=== PATIENT | female | born 1970 | race Caucasian/White ===

== ENCOUNTER 2017-01-06 09:50 | Inpatient (IN) | payer OTHER, MEDICARE ==
[~2017-01-06] VITALS: Ht 162.6 cm; Wt 68.2 kg
[~2017-01-06 09:50] MED LIST: ADAP45GE3 TP; ARIP5TAB5 PO; FLUR30CA13 PO; HALO1TAB PO; LAMO200T2 PO; LORA2TAB PO; NABU500T PO; NORE1TAB56 PO; OMEP20CA11 PO; OXYC1TAB24 PO; QUET200T58 PO; TIZA4CAP8 PO; TRAM-14 PO
[2017-01-06 09:52] VITALS: BP 146/100; PULSE 105; RESP 18; O2SAT 98
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
[2017-01-06 10:37] LABS: BASOPHILS % (AUTO) 0.4 % (0-3); EOSINOPHILS % (AUTO) 2.1 % (0-5); MONOCYTES % (AUTO) 6.5 % (4-12); Mean Corpuscular Hemoglobin 32.5 pg (27.0-35.0); Mean Corpuscular Volume 97.2 fL (81-100); NEUTROPHILS % (AUTO) 58.1 % (40-74); Platelet Count 300 bil/L (150-400)
[2017-01-06] MEDS ORDERED: Alum-Mag Hydrox-Simeth 30 mL Suspension PO PRN (21:20)
[2017-01-06 21:30] VITALS: BP 132/93; PULSE 93; RESP 16
[2017-01-06] MEDS ORDERED: lamoTRIgine 100 mg Tablet PO SCH (21:30)
[2017-01-06] MEDS ORDERED: oxyCODONE-Acetamin 5-325 mg Tablet PO PRN (21:35)
--- NOTE | 2017-01-07 06:03 | NUR ---
Nursing Admit. Pt arrival to unit from our ED at 2009 as a voluntary admit. Approval to be obtained today. Pt arrival via wheelchair with security and ED staff. Pt signed all paperwork and has contracted for safety. Pt reports that she has asked to be admitted for medication adjustment, r/t inability to drive for the last month or so r/t confusion. Pt reports this is r/t medications. Pt is prescribed multiple mood effecting medications. Pt currently living with spouse and is without marital problems. Pt reported history of Bipolar, ADHD, fibromyalgia, chronic spine pain , anxiety, and depression. Reports recently sleeping approximately 3-5 hours nightly. Rated anxiety 2/10, depression 0/10, and pain 0/10. Pt reports she is manic, her psychiatrist (Dr Bernard) is out of town. Recently started on Ambien and Clonidine to assist with sleep.
--- NOTE | 2017-01-07 07:02 | NUR ---
Observations 1900 - 0700 Pt arrived on unit at 2009 and was able to complete admission process. Pt signed all admission paperwork. Pt was oriented to the unit, shown to her room and given a pair up scrubs to wear. Pt was observed to be flat, anxious and depressed. Pt was pleasant, polite and cooperative when approached. Pt maintained behavior throughout the shift. Pt speech was soft and eye contact was ok. Pt was offered snack but she declined. Pt stated "I will not be eating the food here and that's going to be a problem" Pt first appeared asleep at 0000 and slept through the night. Pt was observed every 15 minutes through the night as ordered.
[2017-01-07] MEDS: lamoTRIgine 100 mg Tablet PO SCH ×2 (08:06→15:05)
[2017-01-07] MEDS ORDERED: ARIPiprazole 10 mg Tablet PO SCH (08:30)
[2017-01-07 13:32] VITALS: BP 118/84; PULSE 100; RESP 18
--- NOTE | 2017-01-07 15:13 | NUR ---
shift note 7a-7p Pt. has been pleasant and cooperative today, requesting increased nicotine lozenges and states that is her main issue today. States no depression, 5/10 anxiety, and no thoughts of harm to self or others. No hallucinations or delusions. speech and interactions are appropriate. States that she is terrified of driving because it overwhelms her and she gets anxious and feels like she can't focus on driving safely.
--- NOTE | 2017-01-07 18:43 | NUR ---
Obs Dayshift Pt began the day calm, participating in groups, and engaging w/ peers and staff. Pt became more and more frustrated during the day, wanting nicotine patches, calling staff names, demanding the TV be changed. Staff attempted to allow her into the GR to watch TV, she became more irritable, loud and upset. Later her came to visit and she was able to calm herself down and stated that she was sorry to staff for her outburst. Pt continues to only eat PBJ sandwiches and milk, stating that she will not eat the food here. Pt is labile, demanding, irritable, entitled, high needs, and many requests. Good ADL's, Good meals
--- NOTE | 2017-01-07 19:55 | NUR ---
senior quality manager/Counselor: S: "I used to come here years ago, when you guys were on the 3rd floor, like it was my hotel." O: Patient slept 5.5+ hours last night per staff. Patient denies S/I and H/I. She also denies auditory and visual hallucinations. Depression is 0/10 and anxiety is 5-6/10. Patient stated, "I don't want anybody to come see me but my ." When asked her mood, patient stated, "I'm good, happy." A: Patient is cooperative, unkept, disheveled, guarded, restricted affect, dysthymic, endorses telepathy, limited insight, limited judgment. P: Follow care plan, coordinate with out-patient providers.
[2017-01-07] MEDS ORDERED: cloNIDine 0.1 mg Tablet PO SCH (21:00)
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
[2017-01-07] MEDS: LORazepam 1 mg Tablet PO PRN (22:55)
--- NOTE | 2017-01-08 05:21 | NUR ---
nursing, nights, 11-7 s- i feel pressure from all sides. i need a breast reduction. i'm not suppose to be up. can i have some orange juice. when can i have the phone. i'm good. o- has appeared to sleep after 0045. up at 0145. asleep at 0245. up at 0515 and is now resting quietly in bed. assessed q 15 minutes. a- interrupted sleep, pressured with a flight of ideas, no apparent distress. p- monitor behavior/emotional state, quality, times and amount of sleep, use and effect of medication. aicha
[2017-01-08] MEDS: Magnesium Hydroxide 10 mL Oral Concentration PO PRN (08:05)
[2017-01-08] MEDS: LORazepam 1 mg Tablet PO PRN ×3 (09:40→22:02)
[2017-01-08 13:14] VITALS: BP 126/86; PULSE 95; RESP 16
--- NOTE | 2017-01-08 14:35 | PCM.PNPSY ---
Subjective Date of Service Jan 08, 2017 Subjective I spent 30 minutes both reviewing treatment plan with our clinical team, interviewing the patient and providing supportive/educational psychotherapy. I spent more than 50% of the time counseling the patient. I reviewed the treatment plan with the patient and discussed options available including the potential risks, benefits and side effects. Estefanía reports a gradual improvement in thought organization and mood stability. Staff reports that she has been active and participating well in one -to-one unit and group activities. She slept 8 hours and denies psychotic symptoms review. She denies medication side effects. She was able to identify her medications and what they were used to treat. Current Medications Current Medications Acetaminophen 650 mg Q4H PRN PO Last administered on 01/07/17 18:52; Admin Dose 650 MG; Start 01/06/17 at 21:20 Alprazolam 1-2MG QID PRN PO Last administered on 01/07/17 08:10; Admin Dose 2 MG; Start 01/06/17 at 21:35; Stop 01/07/17 at 12:49; Status DC Aripiprazole 10 mg BID PO Last administered on 01/07/17 08:06; Admin Dose 10 MG ; Start 01/07/17 at 08:30; Stop 01/07/17 at 12:49; Status DC Benztropine Mesylate 1 mg BID PO Last administered on 01/08/17 07:58; Admin Dose 1 MG; Start 01/07/17 at 20:30 Bupropion HCl 37.5 mg MORNING PO Last administered on 01/08/17 07:58; Admin Dose 37.5 MG; Start 01/08/17 at 08:30 Clonazepam 1 mg BID PO Last administered on 01/08/17 07:59; Admin Dose 1 MG; Start 01/07/17 at 20:30; Stop 01/08/17 at 14:26; Status DC Divalproex Sodium 500 mg HS PO Last administered on 01/07/17 20:12; Admin Dose 500 MG; Start 01/07/17 at 21:00; Stop 01/08/17 at 14:26; Status DC Haloperidol 5 mg NOON PO Last administered on 01/08/17 11:27; Admin Dose 5 MG; Start 01/08/17 at 12:00 Haloperidol 10 mg HS PO Last administered on 01/07/17 19:02; Admin Dose 10 MG; Start 01/07/17 at 21:00 Lamotrigine 100 mg BID@0830,16 PO Last administered on 01/07/17 15:05; Admin Dose 100 MG; Start 01/07/17 at 08:30; Stop 01/07/17 at 15:06; Status DC Lamotrigine 200 mg HS PO Last administered on 01/06/17 21:49; Admin Dose 200 MG ; Start 01/06/17 at 21:30; Stop 01/07/17 at 12:49; Status DC Lorazepam 1-2 MG Q4H PRN PO Last administered on 01/08/17 10:15; Admin Dose 1 MG; Start 01/07/17 at 22:50 Magnesium Hydroxide 10 ml Q12H PRN PO Last administered on 01/08/17 08:05; Admin Dose 10 ML; Start 01/06/17 at 21:20 Nabumetone 1,000 mg BID PO Last administered on 01/08/17 08:05; Admin Dose 1, 000 MG; Start 01/07/17 at 08:30 Nicotine Polacrilex 2 mg Q1H PRN BUCCAL Last administered on 01/08/17 13:04; Admin Dose 2 MG; Start 01/07/17 at 12:40 Nicotine Polacrilex 2 mg Q2H PRN BUCCAL Last administered on 01/07/17 11:30; Admin Dose 2 MG; Start 01/06/17 at 21:20; Stop 01/07/17 at 12:37; Status DC Quetiapine Fumarate 200-400MG HS PO Last administered on 01/06/17 21:49; Admin Dose 400 MG; Start 01/06/17 at 21:29; Stop 01/07/17 at 12:49; Status DC Tizanidine HCl 4 mg Q8H PRN PO Last administered on 01/07/17 21:40; Admin Dose 4 MG; Start 01/06/17 at 21:35 Tramadol HCl 50 mg TID PRN PO Last administered on 01/07/17 23:39; Admin Dose 50 MG; Start 01/06/17 at 21:35 Zolpidem Tartrate 10 mg HS PRN PO Last administered on 01/07/17 22:55; Admin Dose 10 MG; Start 01/07/17 at 22:50 Zolpidem Tartrate 20 mg HS PRN PO Last administered on 01/06/17t 21:49; Admin Dose 20 MG; Start 01/06/17 at 21:35; Stop 01/07/17 at 12:49; Status DC Mental Status Exam Vital Signs Vital Signs Date Time Temp Pulse Resp B/P Pulse Ox O2 Delivery O2 Flow Rate FiO2 01/08/17 13:14 36.6 95 16 126/86 Appearance: Neat/well groomed Attitude: Pleasant, Cooperative Behavior: Distractible Affect: Well Modulated/Appropriate Mood: Anxious, Fearful Thought Process/Associations: Logical/Sequential, Goal Directed Speech Production: Normal Speech Rate: Normal Speech Articulation: Normal Thought Content: Appropriate Danger to Self/Suicidal Ideati: Passive Danger to Others: None Consciousness: Alert Orientation: Person, Place, Date, Situation Memory: Grossly Intact Estimate Intellectual Function: Average Basis for IQ estimate: Awareness current events, Word use/vocabulary, Educational history, Employment history Attention/Concentration & Cogn: Grossly Intact Cognitive Testing Method: Abstract Reasoning during interview, Proverb interpretation, Serial computations Insight: Limited Judgement: Limited Result Diagram: 01/06/17 1030 01/06/17 1030 Mental Health Plan The patient is a 46-year-old, white female who has a history of severe alcohol abuse, at times being able to drink up to a gallon of hard liquor a day. She has done quite well with treatment for bipolar mood disorder with Dr. Bernard and for the past 12 years has been sober. She had a similar presentation and admission to our unit in 2010 where she was withdrawn from Lamictal, Abilify, Seroquel, tramadol, Percocet, and benzodiazepines and transitioned to a combination of Haldol, Klonopin, Cogentin and Depakote. This change rapidly improved her condition in 2010. It is unclear how she got back to her current medication regimen which seems to be impairing her sleep, mood and thought processing. Client has good support in her and is normally quite active in her own self-care. I reviewed the relative risks, benefits and side effects of such a drastic change from one medication regimen to the next. She wanted to try this. I also talked about the addition of low-dose Wellbutrin to help her withdraw from cigarettes and she appreciated this trial. She tolerated medication changes except is having a high degree of anxiety. I talked with her about Increasing Klonopin to 1 mg 3 times a day and increasing Depakote to 500 twice a day. [place] DIAGNOSIS: [place] IBipolar mood disorder, manic, without psychotic features. [place] IIDefer. [place] IIIHistory of fibromyalgia, history of chronic back pain, history of temporomandibular joint. [place] IVMild [place] VCurrent global assessment of functioning equal to 35. Medications Treatments Patient is being provided with a high degree of safety through our unit structure and active adult engagement provided by our mental health professionals, mental health technicians, psychiatric nurses and myself. We are focusing on developing improved coping skills and identifying stressors that may have led to current episode. We will attempt to: * Integrate into therapeutic groups, milieu and individual therapy. * Maintain in a closely monitored and structured unit * Provide low-stimulation environment * Obtain collateral data to assist in treatment planning * Assess degree of lability of affect and impulse control * Complete safety plan * Decrease frequency of relapse and need for re-hospitalization * Denies thoughts of harm to self and/or others * Establish a consistent sleep pattern * Medication effective in stabilization of mood and/or thought process * Reduce the risk of imminent harm to self and/or others by providing a safe environment * Tolerates medication without side effects * Patient will be on the following psychiatric medications: Haldol 5 mg every morning 10 mg at bedtime Increase Klonopin 10-1 mg 3 times a day Increase Depakote to 500 mg twice a day Cogentin 1 mg twice a day Wellbutrin 37.5 mg every morning for smoking cessation protocol Patient's legal status Voluntary Anticipated number of hospital days to achieve above goals:5 Disposition: Home Taran Baker MD Jan 08, 2017 14:35
--- NOTE | 2017-01-08 15:31 | NUR ---
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 When asked about auditory hallucinations, she stated that her thoughts were racing and causing her anxiety. She rated her level of anxiety at 4, with 0 depression. A: Patient only slept for about 3.5 hours, and the only complaint she had were her racing thoughts. She stated she did not want to return to 's care, because she felt very over medicated which left her unable to do things, including driving anywhere. P:Monitor behaviors and continue to follow care plan. Coordinate with outpatient providers.
--- NOTE | 2017-01-08 15:35 | NUR ---
[id number]. nurs. S: " I was prepared to stay past Thursday if I had to but now I feel like this I should be ready to go on Thursday... O: Pt stating that she had difficult time last adela requesting meds early to go to bed at 1900. Pt was given klonapin ,haldol with ultram and tylenol at a little after 1900 last night for pressured and racing thoughts. Pt also agitated, anxious, waiting for Dr to address plan for med changes further. Pt given ativan 1mg at 0940 and further 1mg at 1015 with little reported relief. A:Pt given noon sheduled haldol at 1130 for continuing racing thoughts and stated that she felt improvement and appeared less tense and agitated. Pt reported that she does not experience AHs but sees a lot of scattered aspects of her environment, like cracks in door, that are out of proportion and distracting and prevent her from being able to focus and think in clear and linear manner. Pt reliant on contacting spouse frequently on phone, to help ground her and to help tolerate conditions of hospitalization. Pt with brighter and more relaxed affect, perceiving more positive changes in her cognitive and perceptual functioning. P:CNCP
--- NOTE | 2017-01-08 21:09 | NUR ---
Observations 0900 - 2130 Pt affect and mood was flat, anxious, bright when engaged, and mostly keeps to herself. Pt speech and eye contact was ok. Pt is pleasant and friendly upon approach. Pt is polite and cooperative. Pt maintained behavior control throughout the shift. Pt attended community meeting and set a daily goal. Pt attended group briefly. Pt is social with select peers, Pt attended meals in [facility] and has a good appetite. Pt ate about 25% of her meals. Pt was offered snack but she refused. Pt was observed every 15 minutes as ordered throughout the shift.
--- NOTE | 2017-01-09 05:12 | NUR ---
nursing, nights, 11-7 s- why can't you keep this place quiet. i need to sleep and it's too loud. i'll need a shower but i have to blow dry my hair right after. then it will have to be at 0530. thank you. o- has appeared to sleep after 0. has been up after 0345. socializes on and off with peers and staff. is currently preparing to shower. assessed q 15 minutes. a- interrupted sleep, responds well to staff support and reassurance, no apparent distress. p- monitor behavior/emotional state, quality, times and amount of sleep, use and effect of medication. aicha
--- NOTE | 2017-01-09 11:07 | PCM.PNPSY ---
Subjective Date of Service Jan 09, 2017 Subjective I spent 30 minutes both reviewing treatment plan with our clinical team, interviewing the patient and providing supportive/educational psychotherapy. I spent more than 50% of the time counseling the patient. I reviewed the treatment plan with the patient and discussed options available including the potential risks, benefits and side effects. Estefanía reports a gradual improvement in thought organization and mood stability. Staff reports that she has been active and participating well in one -to-one unit and group activities. She slept 5 hours and denies psychotic symptoms review. She denies medication side effects. She was able to identify her medications and what they were used to treat. Current Medications Current Medications Benztropine Mesylate 1 mg BID PO Last administered on 01/09/17 08:09; Admin Dose 1 MG; Start 01/07/17 at 20:30 Bupropion HCl 37.5 mg MORNING PO Last administered on 01/09/17 08:10; Admin Dose 37.5 MG; Start 01/08/17 at 08:30 Clonazepam 1 mg BID PO Last administered on 01/08/17 07:59; Admin Dose 1 MG; Start 01/07/17 at 20:30; Stop 01/08/17 at 14:26; Status DC Clonazepam 1 mg TID PO Last administered on 01/09/17 08:09; Admin Dose 1 MG; Start 01/08/17 at 14:30 Divalproex Sodium 500 mg BID PO Last administered on 01/09/17 08:45; Admin Dose 500 MG; Start 01/08/17 at 20:30 Divalproex Sodium 500 mg HS PO Last administered on 01/07/17 20:12; Admin Dose 500 MG; Start 01/07/17 at 21:00; Stop 01/08/17 at 14:26; Status DC Haloperidol 5 mg NOON PO Last administered on 01/08/17 11:27; Admin Dose 5 MG; Start 01/08/17 at 12:00 Haloperidol 10 mg HS PO Last administered on 01/08/17 20:16; Admin Dose 10 MG; Start 01/07/17 at 21:00 Lorazepam 1-2 MG Q4H PRN PO Last administered on 01/08/17 22:02; Admin Dose 2 MG; Start 01/07/17 at 22:50 Nicotine Polacrilex 2 mg Q1H PRN BUCCAL Last administered on 01/09/17 10:58; Admin Dose 2 MG; Start 01/07/17 at 12:40 Zolpidem Tartrate 10 mg HS PRN PO Last administered on 01/08/17 20:16; Admin Dose 10 MG; Start 01/07/17 at 22:50 Mental Status Exam Appearance: Neat/well groomed Attitude: Pleasant, Cooperative Behavior: Distractible Affect: Well Modulated/Appropriate Mood: Anxious, Fearful Thought Process/Associations: Logical/Sequential, Goal Directed Speech Production: Normal Speech Rate: Normal Speech Articulation: Normal Thought Content: Appropriate Danger to Self/Suicidal Ideati: Passive Danger to Others: None Consciousness: Alert Orientation: Person, Place, Date, Situation Memory: Grossly Intact Estimate Intellectual Function: Average Basis for IQ estimate: Awareness current events, Word use/vocabulary, Educational history, Employment history Attention/Concentration & Cogn: Grossly Intact Cognitive Testing Method: Abstract Reasoning during interview, Proverb interpretation, Serial computations Insight: Limited Judgement: Limited Result Diagram: 01/06/17 1030 01/06/17 1030 Mental Health Plan The patient is a 46-year-old, white female who has a history of severe alcohol abuse, at times being able to drink up to a gallon of hard liquor a day. She has done quite well with treatment for bipolar mood disorder with Dr. Bernard and for the past 12 years has been sober. She had a similar presentation and admission to our unit in 2010 where she was withdrawn from Lamictal, Abilify, Seroquel, tramadol, Percocet, and benzodiazepines and transitioned to a combination of Haldol, Klonopin, Cogentin and Depakote. This change rapidly improved her condition in 2010. It is unclear how she got back to her current medication regimen which seems to be impairing her sleep, mood and thought processing. Client has good support in her and is normally quite active in her own self-care. I reviewed the relative risks, benefits and side effects of such a drastic change from one medication regimen to the next. She wanted to try this. I also talked about the addition of low-dose Wellbutrin to help her withdraw from cigarettes and she appreciated this trial. She tolerated medication changes and is having less anxiety since Increasing Klonopin to 1 mg 3 times a day and increasing Depakote to 500 twice a day. [place] DIAGNOSIS: [place] IBipolar mood disorder, manic, without psychotic features. [place] IIDefer. [place] IIIHistory of fibromyalgia, history of chronic back pain, history of temporomandibular joint. [place] IVMild [place] VCurrent global assessment of functioning equal to 35. Medications Treatments Patient is being provided with a high degree of safety through our unit structure and active adult engagement provided by our mental health professionals, mental health technicians, psychiatric nurses and myself. We are focusing on developing improved coping skills and identifying stressors that may have led to current episode. We will attempt to: * Integrate into therapeutic groups, milieu and individual therapy. * Maintain in a closely monitored and structured unit * Provide low-stimulation environment * Obtain collateral data to assist in treatment planning * Assess degree of lability of affect and impulse control * Complete safety plan * Decrease frequency of relapse and need for re-hospitalization * Denies thoughts of harm to self and/or others * Establish a consistent sleep pattern * Medication effective in stabilization of mood and/or thought process * Reduce the risk of imminent harm to self and/or others by providing a safe environment * Tolerates medication without side effects * Patient will be on the following psychiatric medications: Haldol 5 mg every morning 10 mg at bedtime Klonopin 10-1 mg 3 times a day Depakote to 500 mg twice a day Cogentin 1 mg twice a day Patient's legal status Voluntary Anticipated number of hospital days to achieve above goals:4 Disposition: Home Taran Baker MD Jan 09, 2017 11:07
[2017-01-09 13:51] VITALS: BP 127/88; PULSE 92; RESP 16
--- NOTE | 2017-01-09 17:00 | NUR ---
[facility] : " I am going to be staying here an extra 2 days now so I can get better" O: Pt in the milieu, pt out of her room most of the day. Pt states that she has decided to stay a couple extra days. Pt states she feels like these people are making her go crazy with the noise level around here. A: Pts thought process is linear, her speech is clear and well-paced with good rate and rhythm. Pt is neatly groomed. Pt states her anxiety is a 8/10, she states that the Ativan does nothing for her, as she still states her anxiety was high after given PRN Ativan. Pt rcd her scheduled Haldol with better effect. Pt denies SI at this time. Pt participated in group activity. P Follow plan of care, monitor behaviors. Monitor for side effects.
--- NOTE | 2017-01-09 18:09 | NUR ---
[facility] Day Shift Pt maintained behavioral control throughout the shift. Pt affect appears mostly flat, anxious. Pt complains of racing thoughts and feeling anxious throughout the shift. Pt spends most of the shift pacing the unit, making phone calls, and lightly participating in unit activities. Pt is pleasant with staff and peers when active on the unit, appearing less anxious when engaged with staff or peers. Pt attended all group activities and participated actively. Pt attended all meals and ate approx 10-25% of all meals.
--- NOTE | 2017-01-09 18:35 | NUR ---
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 Patient denies S/I and H/I. She also denies auditory and visual hallucinations. Depression is 0/10 and anxiety is 5/10. A: Patient is cooperative, pleasant, anxious, fearful, limited insight, limited judgment. P: Follow care plan, coordinate with out-patient providers.
[2017-01-10] MEDS: Benzocaine-Menthol Lozenge 2/Pkg PO PRN (05:04)
--- NOTE | 2017-01-10 05:18 | NUR ---
Nursing Note Manager Entry 7pm to 7am Pt somewhat isolative at start of shift. Seen in common area at snack time, minimal interactions with peers. Mood guarded, affect constricted. Denies A/V H, no delusional content noted and thoughts organized and linear. Pt reports her mood is leveling out I dont feel so up. Pt speech normal rate and rhythm. Pt received Ambien 10mg at bedtime and went to sleep at approx. 2130. Pt awake at 0415 resting in room. Requested ultram for jaw pain. Monitored pt. for safety, location and accountability
[2017-01-10] MEDS: BusPIRone 15 mg Dividose Tablet PO SCH ×2 (13:16→20:31)
--- NOTE | 2017-01-10 13:56 | NUR ---
Day shift nursing note S/O-"I am feeling pretty darn good; I have been tapering off my pain meds and my mind feels clearer." Pt. has been out in the milieu. She was upset earlier when someone else got her food tray but then another one was obtained and she was satisfied. She has been making multiple requests for nicotine lozenges however, she declined her nicotine patch this morning. She stated she slept OK last night as she usually only sleeps around 6 hours per night at home. She denies hallucinations or depression and rates her anxiety at 2/10. Earlier in the day she was more anxious as she was pacing and making multiple requests. A-Anxious periods with depressive thoughts. Gaining insight and judgment. P-Monitor for safety per protocol. Assess efficacy of meds to manage target symptoms and enhance sleep. Encourage use of better coping skills.
--- NOTE | 2017-01-10 16:45 | PCM.PNPSY ---
Subjective Date of Service Jan 10, 2017 Subjective The patient is tearful today, still reporting that she is concerned about her son and his HIV status. We discussed her thoughts and feelings and used a CBT 6 Column Thought Log and progressive relaxation which the patient found helpful. She reports despite having no narcotic pain medication, her pain is tolerable. We discussed using Neurontin and pain should persist but the patient reported this was not helpful in the past. She reported that Lyrica made her feel too groggy. The patient reported that her thoughts were "distracted but not racing." The patient is concerned that she is too groggy to drive and would like to have medications reduced further if possible. We discussed using buspirone to reduce anxiety long-term and eventually allow her to reduce or discontinue clonazepam. The patient reported that her midafternoon clonazepam made her quite tired. The typical times that she is most anxious are afternoon and evening elective but typically not morning. Sleep: 6+ hours Appetite: "Concerned about what I am eating." Suicidal and homicidal ideation: Denies Auditory hallucinations: Denies Visual hallucinations: Denies Other Psychotic Symptoms: Denies Anxiety: 3 Depression: 0/10 Current Medications Current Medications Buspirone HCl 15 mg BID PO Last administered on 01/10/17 13:16; Admin Dose 15 MG; Start 01/10/17 at 13:05 Divalproex Sodium 500 mg BID PO Last administered on 01/10/17 08:22; Admin Dose 500 MG; Start 01/08/17 at 20:30; Stop 01/10/17 at 13:08; Status DC Mental Status Exam Appearance: Neat/well groomed Attitude: Pleasant, Cooperative Behavior: Tearful, Distractible Affect: Other (Tearful and anxious at times) Mood: Anxious, Fearful Thought Process/Associations: Logical/Sequential, Goal Directed Speech Production: Normal Speech Rate: Normal Speech Articulation: Normal Thought Content: Appropriate Danger to Self/Suicidal Ideati: None Danger to Others: None Hallucinations: Auditory (Denies), Visual (Denies) Consciousness: Alert Orientation: Person, Place, Date, Situation Memory: Grossly Intact Estimate Intellectual Function: Average Basis for IQ estimate: Awareness current events, Word use/vocabulary, Educational history, Employment history Attention/Concentration & Cogn: Grossly Intact Cognitive Testing Method: Abstract Reasoning during interview, Proverb interpretation, Serial computations Insight: Limited Judgement: Limited Result Diagram: 01/06/17 1030 01/06/17 1030 Mental Health Plan The patient is a 46-year-old, white female who has a history of severe alcohol abuse, at times being able to drink up to a gallon of hard liquor a day. She has done quite well with treatment for bipolar mood disorder with Dr. Bernard and for the past 12 years has been sober. She had a similar presentation and admission to the [facility] in 2010 where she was withdrawn from Lamictal, Abilify, Seroquel, tramadol, Percocet, and benzodiazepines and transitioned to a combination of Haldol, Klonopin, Cogentin and Depakote. This change rapidly improved her condition in 2010. She is currently reporting her current medication regimen is impairing her sleep, mood and thought processing. The patient's primary sources of anxiety or her concerns over her son and how she has interacted with him. She reports having a supportive . She would like to have her medication streamlined and anxiety under better control before she discharges. We discussed the addition of buspirone to eventually replace clonazepam and the patient was agreeable to a trial. She also reported that 3 times a day clonazepam is making her too sedated and would like to return to twice daily. Lorazepam was switched to clonazepam as needed for simplicity of medication. We went over using a CBT thought log and using body focused imagery for relaxation which the patient found helpful. [place] I Bipolar I Disorder, manic, without psychotic features. [place] II Defer. [place] III History of fibromyalgia, history of chronic back pain, history of temporomandibular joint dysfunction. [place] IV Mild [place] V Current global assessment of functioning equal to 35. Medications Clonazepam 1 mg twice a day Clonazepam 0.5 mg every 4 hours when necessary anxiety or agitation Buspirone 15 mg twice a day Haloperidol 5 mg noon and 10 mg nightly Relafen 1000 mg twice a day Benztropine 1 mg twice a day Tramadol 50 mg 3 times a day as needed Zolpidem 5 mg nightly as needed Tizanidine 4 mg every 8 hours as needed for spasm Divalproex ER 1000 mg tonight then 1500 mg nightly Treatments 1. The patient is admitted to the inpatient unit and will be provided a safe and secure environment. 2. The patient is denying current active suicidality and is not in need of a one-to-one at this time. She is agreeing to notify us should she have any acute suicidal or homicidal thoughts. 3. The patient is encouraged to participate with group and milieu activities. 4. The patient will be seen by the treatment team on a daily basis to assess symptoms, side effects and response to treatment. 5. The patient will be switched to Depakote ER 1500 mg nightly 6. Lorazepam will be discontinued and she will be placed on clonazepam 0.5 mg every 4 hours as needed 7. Clonazepam will be switched to 1 mg at 1430 hrs. and 1 mg at bedtime. 8. Buspirone 15 mg twice a day will be started. 9. The patient was given CBT worksheets, walked through them, and explained to her to use body focused symmetry for relaxation. 10. Anticipated length of stay is 3-5 days. Amadou Linares MD Jan 10, 2017 16:45 that may have led to current episode. We will attempt to: * Integrate into therapeutic groups, milieu and individual therapy. * Maintain in a closely monitored and structured unit * Provide low-stimulation environment * Obtain collateral data to assist in treatment planning * Assess degree of lability of affect and impulse control * Complete safety plan * Decrease frequency of relapse and need for re-hospitalization * Denies thoughts of harm to self and/or others * Establish a consistent sleep pattern * Medication effective in stabilization of mood and/or thought process * Reduce the risk of imminent harm to self and/or others by providing a safe environment * Tolerates medication without side effects * Patient will be on the following psychiatric medications: Haldol 5 mg every morning 10 mg at bedtime Klonopin 10-1 mg 3 times a day Depakote to 500 mg twice a day Cogentin 1 mg twice a day Patient's legal status Voluntary Anticipated number of hospital days to achieve above goals:4 Disposition: Home Amadou Linares MD Jan 10, 2017 16:45
--- NOTE | 2017-01-10 16:54 | NUR ---
[employer] Specialist/Counselor S:" I'm feeling anxious." O: Patient stated she never has any SI or HI, nor any auditory or visual hallucinations. She stated that her depression was at a 0, but her anxiety at a 6. A:Patient made good eye contact and was pleasant and cooperative. She participated in both groups. P: Follow care plan and coordinate with outpatient providers. Monitor anxious behaviors.
[2017-01-10] MEDS ORDERED: Divalproex (QD) 500 mg ER24 Tablet PO ONE (21:00)
--- NOTE | 2017-01-10 23:09 | NUR ---
Nurses Note evening Patient has been pleasant,polite and social with peers. She enjoyed visits from family members today that improved her mood. Patients' thoughts have been clear,linear and goal directed. Will maintain q 15min. checks for safety and support. Addendum: 01/10/17 at 2317 by PERLA COTE RN Amended: Links added.
[2017-01-11] MEDS: Magnesium Hydroxide 10 mL Oral Concentration PO PRN (05:09)
--- NOTE | 2017-01-11 06:02 | NUR ---
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 Patient awake early am,complaining of back pain and received Tramadol 50 mg po. Patient also complains of constipation and received MOM. Patient requested to shower and tending to grooming.
[2017-01-11 08:00] VITALS: BP 110/79; PULSE 74; RESP 19
[2017-01-11] MEDS: BusPIRone 15 mg Dividose Tablet PO SCH ×2 (08:51→21:17)
--- NOTE | 2017-01-11 14:33 | PCM.PNPSY ---
Subjective Date of Service Jan 11, 2017 Subjective The patient reports that she is groggy this morning even from low-dose clonazepam but she believes that there may have been an interaction with the tizanidine causing excessive sedation. On a positive note, the patient indicated that she has been going over her CBT worksheets and has been feeling more comfortable about her son's HIV status and her reaction to it. "It's his life. He is strong and I need to get used to it." Patient reported that she believes her thought distortion was improved by using the CBT worksheets. She also reported using the progressive relaxation while she was in the day room watching television. She noted that she has not had any tearfulness when thinking about her son so far today. Later, the patient informed this narrative writer that she had called her son, but he did not answer and she just left a message indicating that she loved him. She denied having any tearful episodes. The patient is concerned that she will not be thoroughly stable by Thursday her desired date for discharge. We discussed that we can assess it on a day-to-day basis. We discussed switching tizanidine to Robaxin to reduce daytime sedation and reducing as needed clonazepam to 0.25 mg and only continuing scheduled clonazepam at bedtime. Sleep: 6.75+ hours "good" Appetite: "Better, but still concerned about what I am eating. I eat appear better and jelly sandwich instead" Suicidal and homicidal ideation: Denies Auditory hallucinations: Denies Visual hallucinations: Denies Other Psychotic Symptoms: Denies Anxiety: 5/10, normal level is 3/10 Depression: 0/10 Current Medications Current Medications Buspirone HCl 15 mg BID PO Last administered on 01/11/17 08:51; Admin Dose 15 MG; Start 01/10/17 at 13:05 Clonazepam 0.5 mg Q4 PRN PO Last administered on 01/11/17 08:51; Admin Dose 0.5 MG; Start 01/10/17 at 13:05; Stop 01/11/17 at 13:05; Status DC Divalproex Sodium 1,000 mg HS ONCE PO Last administered on 01/10/17 20:35; Admin Dose 1,000 MG; Start 01/10/17 at 21:00; Stop 01/10/17 at 21:01; Status DC Mental Status Exam Appearance: Neat/well groomed Attitude: Pleasant, Cooperative Behavior: No unusual behavior Affect: Restricted Mood: Dysthymic Thought Process/Associations: Logical/Sequential, Goal Directed Speech Production: Normal Speech Rate: Normal Speech Articulation: Normal Thought Content: Appropriate, Perseveration (decreased) Danger to Self/Suicidal Ideati: None Danger to Others: None Hallucinations: Auditory (Denies), Visual (Denies) Consciousness: Alert Orientation: Person, Place, Date, Situation Memory: Grossly Intact Estimate Intellectual Function: Average Basis for IQ estimate: Awareness current events, Word use/vocabulary, Educational history, Employment history Attention/Concentration & Cogn: Grossly Intact Cognitive Testing Method: Abstract Reasoning during interview, Proverb interpretation, Serial computations Insight: Limited Judgement: Limited Result Diagram: 01/06/17 1030 01/06/17 1030 Mental Health Plan The patient is a 46-year-old, white female who has a history of severe alcohol abuse, at times being able to drink up to a gallon of hard liquor a day. She has done quite well with treatment for bipolar mood disorder with Dr. Bernard and for the past 12 years has been sober. She had a similar presentation and admission to the [facility] in 2010 where she was withdrawn from Lamictal, Abilify, Seroquel, tramadol, Percocet, and benzodiazepines and transitioned to a combination of Haldol, Klonopin, Cogentin and Depakote. This change rapidly improved her condition in 2010. She is currently reporting her current medication regimen is impairing her sleep, mood and thought processing. The patient's primary sources of anxiety or her concerns over her son and how she has interacted with him. She reports having a supportive . She would like to have her medication streamlined and anxiety under better control before she discharges. The patient reports that she feels that she has improved anxiety overall and depression and tearfulness has decreased. She reports that her pain is for the most part being adequately addressed. She reports that the CBT work sheet has been helpful in reducing her perseverative and distorted thoughts. She is used her relaxation techniques successfully. The patient is still concerned about sedation from medication and changes were discussed as noted above. [place] I Bipolar I Disorder, manic, without psychotic features. [place] II Defer. [place] III History of fibromyalgia, history of chronic back pain, history of temporomandibular joint dysfunction. [place] IV Mild [place] V Current global assessment of functioning equal to 35. Medications Clonazepam 1 mg nightly Clonazepam 0.25 mg every 4 hours when necessary anxiety or agitation Buspirone 15 mg twice a day Haloperidol 5 mg noon and 10 mg nightly Relafen 1000 mg twice a day Benztropine 1 mg twice a day Tramadol 50 mg 3 times a day as needed Zolpidem 5 mg nightly as needed Methocarbamol 500 mg 4 times daily as needed for spasm. Divalproex ER 1500 mg nightly Treatments 1. The patient is admitted to the inpatient unit and will be provided a safe and secure environment. 2. The patient is denying current active suicidality and is not in need of a one-to-one at this time. She is agreeing to notify us should she have any acute suicidal or homicidal thoughts. 3. The patient is encouraged to participate with group and milieu activities. 4. The patient will be seen by the treatment team on a daily basis to assess symptoms, side effects and response to treatment. 5. The patient will be continued on Depakote ER 1500 mg nightly 6. As needed clonazepam will be decreased to 0.25 mg every 4 hours as needed 7. Scheduled clonazepam will be switched to 1 mg at bedtime. 8. The patient was encouraged to use her CBT worksheets and progressive relaxation. 9. Tizanidine will be discontinued and she will be placed on methocarbamol 500 mg 4 times daily as needed for spasm. 10. Anticipated length of stay is 3-5 days. Amadou Linares MD Jan 11, 2017 14:33
--- NOTE | 2017-01-11 14:38 | NUR ---
Day shift note Pt has been cooperative with care, although has presented as mildly anxious most of shift. Mid-morning the pt reported that her anxiety medication was making her feel "woozy" even though dose was reduced recently. MD notified. After pt met with MD midday and changes were made to medication, pt appears more at ease. Pt frequently requesting smoking cessation lozenges and refuses patch because it doesn't agree with her. Pt has been in dining room for most of day socializing with other patients. Pt states she has no intent to harm herself at this point. Patient is mainly concerned with her pending discharge later in week, and whether or not her medications will be correctly working for her by the time she leaves. Care continues.
[2017-01-11] MEDS ORDERED: Divalproex (QD) 500 mg ER24 Tablet PO SCH (21:00)
--- NOTE | 2017-01-11 21:16 | NUR ---
Observations 0900 - 0 Pt affect and mood was flat, anxious, bright when engaged, and mostly keeps to herself. Pt speech and eye contact was ok. Pt is pleasant and friendly upon approach. Pt is polite and cooperative. Pt maintained behavior control throughout the shift. Pt attended community meeting and set a daily goal. Pt rated her mood 02/09. Pt is social with select peers, Pt attended meals in [employer] and has a good appetite. Pt ate about 75% of her meals. Pt watched TV with peers and ate snack before bed. Pt was observed every 15 minutes as ordered throughout the shift.
--- NOTE | 2017-01-11 21:25 | NUR ---
PRN medication Pt requested and received Tylenol 650mg po prn for jaw pain rated 3/10 and Ambien 10mg po prn for insomnia @ 2119.
--- NOTE | 2017-01-11 23:23 | NUR ---
Nurses Note Evening Patient has been in the community most of the shift. She has had episodes of increased anxiety related to unit disturbances. She is hopeful to discharge home early this week. Patient remains medication compliant without adverse effects, maintain q 15min. checks for safety and support. Addendum: 01/11/17 at 2331 by PERLA COTE RN Amended: Links added.
--- NOTE | 2017-01-12 04:51 | NUR ---
Nursing Note Clinical Education Manager 11pm to 7am Pt asleep at start of shift, woke up at 0130 asking for juice and went back to sleep without further interruption. Monitored pt. for safety, location and accountability
[2017-01-12] MEDS: Benzocaine-Menthol Lozenge 2/Pkg PO PRN (05:32)
[2017-01-12] MEDS: BusPIRone 15 mg Dividose Tablet PO SCH (07:48)
[2017-01-12 08:07] VITALS: BP 99/81; PULSE 79; RESP 17
[2017-01-12 11:41] LABS: BASOPHILS % (AUTO) 0.4 % (0-3); EOSINOPHILS % (AUTO) 1.6 % (0-5); MONOCYTES % (AUTO) 7.2 % (4-12); Mean Corpuscular Hemoglobin 32.4 pg (27.0-35.0); Mean Corpuscular Volume 97.6 fL (81-100); NEUTROPHILS % (AUTO) 61.9 % (40-74); Platelet Count 283 bil/L (150-400)
--- NOTE | 2017-01-12 12:07 | NUR ---
Nursing: Day shift and discharge. S: I feel fine now that I Know that I am going home. Denies anxiety, depression and suicidal thinking. Gathered belongings. Called relative to get her. All outcomes met. Addendum: 01/12/17 at 1316 by RUSSELL FIGUEROA RN Estefanía left the unit at 1310, accompanied by friend, ambulatory. She had signed all discharge papers.
--- NOTE | 2017-01-12 12:22 | PCM.DIMED ---
Discharge Instructions Date of Service Jan 12, 2017 Dates of Hospitalization Jan 06, 2017 at 15:56 Discharge Diagnosis Discharge Diagnosis [place] I Bipolar I Disorder, manic, without psychotic features. [place] II Defer. [place] III History of fibromyalgia, history of chronic back pain, history of temporomandibular joint dysfunction. [place] IV Mild [place] V Current global assessment of functioning equal to 50. Test Results Test Results Valproic Acid level at 11:38 am (last dose at 21:20pm) 47 microgram/mL CBC Test 01/12/17 11:38 White Blood Count 10.4th/mm3 (3.8-10.1) Red Blood Count 3.74mil/mm3 (3.90-5.20) Hemoglobin 12.1g/dL (12.0-15.6) Hematocrit 36.5% (35.0-46.0) Mean Corpuscular Volume 97.6fL (81-100) Mean Corpuscular Hemoglobin 32.4pg (27.0-35.0) Mean Corpuscular Hemoglobin Concent 33.2% (32.0-37.0) Red Cell Distribution Width 12.8% (12.3-15.4) Platelet Count 283bil/L (150-400) Neutrophils (%) (Auto) 61.9% (40-74) Lymphocytes (%) (Auto) 28.7% (14-46) Monocytes (%) (Auto) 7.2% (4-12) Eosinophils (%) (Auto) 1.6% (0-5) Basophils (%) (Auto) 0.4% (0-3) CMP Test 01/06/17 10:30 01/12/17 11:38 Thyroid Stimulating Hormone (TSH) 0.825uIU/mL Hold Trent Top Tube Received Sodium Level 140mEq/L Potassium Level 4.4mEq/L Chloride Level 103mEq/L Carbon Dioxide Level 23mmol/L Blood Urea Nitrogen 22mg/dL Creatinine 0.60mg/dL Estimat Glomerular Filtration Rate 154mL/min Glucose Level 128mg/dL Calcium Level 9.9mg/dL Total Bilirubin 0.3mg/dL Aspartate Amino Transf (AST/SGOT) 13U/L Alanine Aminotransferase (ALT/SGPT) 11U/L Alkaline Phosphatase 101U/L Total Protein 7.3g/dL Albumin 4.3g/dL Diet Discharge Diet: No restrictions Activity Discharge Activity: No restrictions Patient Instructions Patient Instructions Should you have any thoughts of harming yourself or others, please call the crisis line, your provider, 911, or go to the nearest Emergency Department. Do not change or discontinue your medications without discussing with your provider. You have been given a prescription for 14 days supply of your new medication Follow-up plan Psychiatrist Dr. Jai Bernard M.D. on 01/27/17 at 1:30pm [address] [address] Primary Care: Dr. Jodi Shafer within 1 week, but current appointment at 10:30am [address] [address] Amadou Linares MD Jan 12, 2017 11:03
[2017-01-12] MEDS ORDERED: BUSP15TA3 PO (12:28)
[2017-01-12] MEDS ORDERED: ROB500 PO (12:28)
[2017-01-12] MEDS ORDERED: KLO5T PO (12:28)
[2017-01-12] MEDS ORDERED: KLO1T PO (12:28)
[2017-01-12] MEDS ORDERED: ZLP5T PO (12:28)
[2017-01-12] MEDS ORDERED: DIVA500T14 PO (12:28)
[2017-01-12] MEDS ORDERED: HAL5 PO ×2 (12:28)
[2017-01-12] MEDS ORDERED: BENZ1TAB7 PO (12:28)
--- NOTE | 2017-01-12 16:11 | PCM.DC.MED ---
Discharge Summary Date of Service Jan 12, 2017 Dates of Hospitalization Date of Hospital Admission Jan 06, 2017 at 15:56 Date of Discharge: Jan 12, 2017 Providers: Admitting Physician: Taran Baker MD Primary Care Physician: Jodi Shafer MD Attending Physician: Taran Baker MD Diagnosis at Time of Discharge Diagnosis at Time of Discharge [place] I Bipolar I Disorder, manic, without psychotic features. [place] II Defer. [place] III History of fibromyalgia, history of chronic back pain, history of temporomandibular joint dysfunction. [place] IV Mild [place] V Current global assessment of functioning equal to 50. Brief History From Dr. Baker's history and physical: IDENTIFICATION: The patient is a 46-year-old, , white female. She has currently been to her for the past 10 years and has a 21-year-old son. He has four children from a previous marriage. Client has been on SSI for bipolar mood disorder, bisi since 1995. The couple lives in [place]. REASON FOR ADMISSION: Client came to the emergency department complaining of suicidal ideation, not wanting to live anymore and feeling like the symptoms in life was "just too much to go on." HISTORY OF PRESENT ILLNESS: The client presents today for evaluation and treatment of suicidal ideation, complaining of symptoms of bisi including poor sleep, poor appetite, decreased ability to function such as drive a car or even walk to her tanning salon, racing thoughts, and a lot of increased activity. Her main issue is bipolar mood disorder. All of the above symptoms seem to be made worse by poor sleep. She quit smoking three days ago and is having an extremely hard time sleeping. She also has a difficult time with interpersonal relationship conflicts and her son is currently refusing to talk to her. Her son got HIV at age 16 and she feels very guilty about this. Her son seems to be blaming her for some of his problems. All of the above is improved by good sleep, by good relaxation time, diet and when she is taking her medications on a regular basis. She is currently presenting with signs of high emotional liability, impaired judgment and insight and coping. No cognitive deficits. No difficulty with reality testing. Hospital Course The patient was admitted to the unit and provided a safe and structured milieu. She was encouraged to participate in both group and one-to-one activities. The patient had previously been stabilized at the mental [facility] on a combination of haloperidol, clonazepam, benztropine, and divalproex. The patient was agreeable to streamlining in decreasing her medications and so aripiprazole, quetiapine, Xanax, oxycodone, Lamictal, and clonidine were discontinued and she was started on haloperidol with a final dose of 5 mg daily and 10 mg nightly; Depakote which was changed to Depakote ER 1500 mg nightly with a non-trough level of 47; benztropine 1 mg twice daily and clonazepam 1 mg 3 times daily which was eventually tapered to 1 mg at bedtime with 0.25 mg as needed. The patient reported significant difficulties dealing with perseverative thoughts around her son and his health history with tearfulness and inability to process her feelings. The patient responded quickly to a combination of cognitive behavioral therapy worksheets which were practiced with the patient on several occasions as well as body focused symmetry and progressive relaxation. The patient was requesting discharge and felt relatively stable on this regimen of medication. She reported that her mother and were both supportive of her returning home. She was advised not to drive until she was certain that there was no impairment. She was advised not to drive alone until approved by her provider. At the time of discharge, the patient was reporting her mood as "I am okay... feeling ready to leave." She denied any racing thoughts and reported good pain control despite being "detoxed" off pain medication. Sleep was reported as "well" and appetite was reported as "good." Her anxiety was reported as 1/10 and depression as 0/10. She denied auditory or visual hallucinations and any thought, intent or plan of hurting herself or others. Exam Vital Signs (Last) Date Time Temp Pulse Resp B/P Pulse Ox O2 Delivery O2 Flow Rate FiO2 01/12/17 08:07 36.6 79 17 99/81 01/06/17 09:52 98 Room Air Exam Discharge Mental Status Exam Appearance: Neat/well groomed Attitude: Pleasant, Cooperative Behavior: No unusual behavior Affect: Restricted Mood: "I am okay, feeling ready to leave." Thought Process/Associations: Logical/Sequential, Goal Directed Speech Production: Normal Speech Rate: Normal Speech Articulation: Normal Thought Content: Appropriate Danger to Self/Suicidal Ideation: None Danger to Others: None Hallucinations: Auditory (Denies), Visual (Denies) Consciousness: Alert Orientation: Person, Place, Date, Situation Memory: Grossly Intact Estimate Intellectual Function: Average Basis for IQ estimate: Awareness current events, Word use/vocabulary, Educational history, Employment history Attention/Concentration & Cognition: Grossly Intact Cognitive Testing Method: Abstract Reasoning during interview, Proverb interpretation, Serial computations Insight: Fair Judgment: Fair Physical Examination AIMS Score: 0 Test 01/06/17 10:02 01/06/17 10:30 01/12/17 11:38 Hold Urine Received (Received) Thyroid Stimulating Hormone (TSH) 0.825uIU/mL (0.450-4.500) Hold Trent Top Tube Received (Received) White Blood Count 10.4th/mm3 (3.8-10.1) Red Blood Count 3.74mil/mm3 (3.90-5.20) Hemoglobin 12.1g/dL (12.0-15.6) Hematocrit 36.5% (35.0-46.0) Mean Corpuscular Volume 97.6fL (81-100) Mean Corpuscular Hemoglobin 32.4pg (27.0-35.0) Mean Corpuscular Hemoglobin Concent 33.2% (32.0-37.0) Red Cell Distribution Width 12.8% (12.3-15.4) Platelet Count 283bil/L (150-400) Neutrophils (%) (Auto) 61.9% (40-74) Lymphocytes (%) (Auto) 28.7% (14-46) Monocytes (%) (Auto) 7.2% (4-12) Eosinophils (%) (Auto) 1.6% (0-5) Basophils (%) (Auto) 0.4% (0-3) Sodium Level 140mEq/L (134-144) Potassium Level 4.4mEq/L (3.5-5.2) Chloride Level 103mEq/L (97-108) Carbon Dioxide Level 23mmol/L (18-29) Blood Urea Nitrogen 22mg/dL (6-24) Creatinine 0.60mg/dL (0.57-1.00) Estimat Glomerular Filtration Rate 154mL/min (>59) Glucose Level 128mg/dL (60-99) Calcium Level 9.9mg/dL (8.5-10.1) Total Bilirubin 0.3mg/dL (0.0-1.2) Aspartate Amino Transf (AST/SGOT) 13U/L (0-50) Alanine Aminotransferase (ALT/SGPT) 11U/L (0-32) Alkaline Phosphatase 101U/L (25-150) Total Protein 7.3g/dL (6.4-8.4) Albumin 4.3g/dL (3.4-5.0) Valproic Acid (Depakene) Level 47ug/mL (50-125) Discharge Medications Discharge Medications Benztropine Mesylate (Benztropine Mesylate) 1 Mg Tablet 1 MG PO BID Prescribed by: NARESH LINARES MD Buspirone (Buspirone) 15 Mg Tablet 15 MG PO BID Prescribed by: NARESH LINARES MD Clonazepam (Clonazepam) 1 Mg Tablet 1 MG PO HS Prescribed by: NARESH LINARES MD Divalproex ER (Divalproex ER) 500 Mg Tab.er.24h 1,500 MG PO HS Prescribed by: NARESH LINARES MD Haloperidol (Haloperidol) 5 Mg Tablet 5 MG PO NOON Prescribed by: NARESH LINARES MD Haloperidol (Haloperidol) 5 Mg Tablet 10 MG PO HS Prescribed by: NARESH LINARES MD Nabumetone (Nabumetone) 500 Mg Tablet 1,000 MG PO BID (Reported) As needed Clonazepam (Clonazepam) 0.5 Mg Tablet 0.25 MG PO Q4H PRN PRN For Anxiety or Agitation Prescribed by: NARESH LINARES MD Methocarbamol (Methocarbamol) 500 Mg Tablet 500 MG PO QID PRN PRN For Spasm Prescribed by: NARESH LINARES MD Tramadol (Ultram) 50 Mg Tablet 50 MG PO TID PRN PRN Pain (Reported) Zolpidem (Ambien) 5 Mg Tablet 10 MG PO HS PRN PRN Insomnia Prescribed by: NARESH LINARES MD Followup Plan Disposition: No indication for further hospitalization at this time, patient planning to return home to live with her . The patient verbally consented to take the prescribed medications. The patient verbally expressed understanding of the risks, benefits, alternative treatment options, and risks of not taking the prescribed medication. The patient verbally expressed understanding of the medication instructions, that she will adhere to the prescribed medication, and that she will go to all aftercare scheduled appointments. Follow-up plan Psychiatrist Dr. Jai Bernard M.D. on 01/27/17 at 1:30pm [address] [address] Primary Care: Dr. Jodi Shafer within 1 week, but current appointment at 10:30am [address] [address] Discharge Diet: No restrictions Discharge Activity: No restrictions Patient Instructions Should you have any thoughts of harming yourself or others, please call the crisis line, your provider, 911, or go to the nearest Emergency Department. Do not change or discontinue your medications without discussing with your provider. You have been given a prescription for 14 days supply of your new medication Naresh Linares MD Jan 12, 2017 16:[address] [address] Discharge Diet: No restrictions Discharge Activity: No restrictions Patient Instructions Should you have any thoughts of harming yourself or others, please call the crisis line, your provider, 911, or go to the nearest Emergency Department. Do not change or discontinue your medications without discussing with your provider. You have been given a prescription for 14 days supply of your new medication Naresh Linares MD Jan 12, 2017 16:11
--- NOTE | 2017-01-12 16:43 | NUR ---
clinical support manager/Counselor S: I slept well." O: Patient has no SI or HI, no AH or VH. Rated her anxiety at 3 and her depression at 0. She attended the first group. A: Patient was discharged at noon, and has follow up appointments with Dr Bernard and Dr Shafer. Patient is returning to her own home and was picked up by a friend. She was provided with all necessary discharge paperwork, including a list of appts, care plan, crisis line # etc. P: Follow discharge instructions.
== END 2017-01-12 13:10 | disposition home or self-care (01) | DRG 885 ==
LOC: SED 09:50 → MHC 15:56
PROVIDERS: ADMIT Psychiatry & Neurology Psychiatry; ATTEND Psychiatry & Neurology Psychiatry
DX: F31.10 Bipolar disorder, current episode manic without psychotic features, unspecified (principal); R45.851 Suicidal ideations; M79.7 Fibromyalgia; F41.8 Other specified anxiety disorders; F17.200 Nicotine dependence, unspecified, uncomplicated